=== PATIENT | female | born 1995 | race Two or more races ===

== ENCOUNTER 2024-07-26 16:01 | Inpatient (IN) | payer MEDICAID, OTHER ==
[~2024-07-26] VITALS: Ht 152.4 cm; Wt 56.9 kg
--- NOTE | 2024-07-26 16:11 | ED.PDOC ---
HARP REPAIRER HPI Comments HPI: Poor Historian. 29-year-old female brought in by ambulance for evaluation of lower abdominal/pelvic pain diffuse with the associated nausea and vomiting. This happened suddenly today while she was in the car. Vomit is nonbilious nonbloody. Pain is constant nonradiating. No alleviating or precipitating factors. Patient is with early gestation and was seen and evaluated approximately a month ago at [facility] for vaginal bleed and she was told that this might be a miscarriage or too early to tell. Patient denies any history of drugs or alcohol. Patient denies any active vaginal bleeding. pt last menstrual period was : 05/06/24 Patient states that she is approximately 11 weeks gestation. VITALS prior to ED arrival; TEMP: HEART RATE; 137 02 SAT; 99% on room air RR; 18 BP; 131/95 VITALS upon ED arrival: TEMP: HEART RATE; 111 02 SAT; 99% on room air RR; 18 BP; 109/78 PMH:UTI PSH: denies SOCIAL HISTORY: denies tobacco use, denies etoh use, denies drug use MEDS; denies ALLERGIES; denies REVIEW OF SYSTEMS: CONSTITUTIONAL: Denies acute: fever, diaphoresis, chills, HEAD: Denies acute: headache, photophobia Eyes: Denies acute: Double vision, vision loss, eye pain, eye discharge. EARS: Denies acute: tinnitus, hearing loss, ear discharge, ear pain, THROAT: Denies acute: sore throat, swelling, difficulty swallowing , pain with swallowing, change in voice. NECK: Denies acute: neck pain, neck swelling, stiff neck. HEART: Denies acute : chest pain, palpitations, LUNGS: Denies acute: SOB, wheezing, cough, hemoptysis ABDOMEN: Denies acute: diarrhea, melena , hematemesis, hematochezia SKIN: Denies acute: rash, redness, lesions, itchiness. EXTREMITIES: Denies acute: calf pain, numbness, tingling, weakness, denies pain in extremity. Denies acute: Low back pain. Neuro: Denies acute: focal neurological deficit, motor or sensory focal neurological deficit, tremors, seizure like activity, confusion, dizziness, change in mental status, loss of bowel or bladder function, cauda equina like symptoms. : Denies acute: dysuria, hematuria, flank pain, increase in urinary frequency. PSYCH: Denies acute: hallucination, suicidal ideation, homicidal ideation. FEMALE: Denies acute: abnormal vaginal bleeding, foul odor, unusual discharge. PHYSICAL EXAM: General: Moderate acute distress, awake and alert. Head: normocephalic, atraumatic. Neck: supple, trachea is midline, no swelling. Throat: Normal phonation. Eyes:, no erythema, no purulent discharge, no proptosis, no icterus. Heart: regular tachycardic, no significant murmur appreciated. Lungs: no apparent respiratory distress, Able to speak in full sentences. No wheezing, no rhonchi, no crackles. No stridors Clear to auscultation bilaterally. Abdomen: Lower abdomen tender to palpation, non distended, soft, no guarding, no rebound, + bowel sounds. Neuro: Awake, Alert, oriented to name, self, situation, follows commands GCS=15. Speech is normal. Skin: no petechia, no purpura, no cyanosis, non-pale, not jaundice. Lower extremities: --no - Pitting edema no deformity, no focal swelling, no calf TTP. Makes eye contact. moves all four extremities. Face: no apparent facial droop. Time Seen by MD: 16:03 Reviewed Notes: Nurses Notes, Oil Pipeline Operator Notes, Medications, Allergies Allergies: Coded Allergies: NO KNOWN ALLERGIES (Unverified , 07/26/24) Home Meds Active Scripts Ondansetron Odt 4MG Tab (ZOFRAN PO) 4 Mg Tb, 4 MG PO Q4HPRN PRN for 7 Days, #35 TAB ODT TAB-DISSOLVE IN MOUTH, THEN SWALLOW Prov:STARLA MOREIRA DO 07/26/24 Ibuprofen (Ibuprofen) 800 Mg Tab, 800 MG PO TID PRN for 4 Days, #12 TAB Prov:STARLA MOREIRA 07/26/24 Hydrocodone-Acetaminophen (Hydrocodone/Acetaminophen 10-325 mg) 1 Tab Tab, 1 TAB PO Q6HPRN PRN for 7 Days, #28 TAB Prov:STARLA MOREIRA 07/26/24 Docusate Sodium (Colace) 100 Mg Cap, 1 CAP PO BID, #60 CAP 2 Refills Prov:STARLA MOREIRA 07/26/24 Information Source: Patient, Emergency Med Personnel Mode of Arrival: EMS Brought in by: EMS Past Medical History PAST MEDICAL HISTORY: UTI'S Surgical History: Denies all surgeries HEALTH SERVICE COORDINATOR History: Denies all HEALTH SERVICE COORDINATOR Hx Family History Family History: Unknown Social History Smoker: Non-Smoker Alcohol: Denies ETOH Use Drugs: Denies Drug Use Lives In: Home Was a procedure done? Was a procedure done?: No Differential Diagnosis (HEALTH SERVICE COORDINATOR) Vaginal Bleeding: - Complete, - Incomplete, - Inevitable, - Missed, - Threatened, Abruptio Placentae, Blood Loss Anemia, Dysmenorrhea, Ectopic , Hormonal, Menorrhagia, Menometrorrhagia, Menstrual Bleeding, Myomatous Uterus, Placenta Previa, Precip itous Hct, Trauma, UTI, Vaginitis, Other (DDX include Diverticulitis, colitis, gastroenteritis, acute abdomen, SBO, enteritis, constipation, volvulus, appendicitis, Gallbladder disease, choledocolithiasis, ascending cholangitis, pancreatitis, intraAbdominal mass/neoplasm, hepatitis, UTI, pylonephritis, kidney stone, aneurysm, dissection, Inflammatory bowel disease, gastroparesis, ischemic bowel, ovarian torsion, ovarian cyst/mass, tubo-ovarian abscess, , ectopic , PID, STD.) X-Ray, Labs, Meds, VS Vital Signs Date Time Temp Pulse Resp B/P (MAP) Pulse Ox O2 Delivery O2 Flow Rate FiO2 07/26/24 20:50 95 21 123/85 (98) 92 07/26/24 20:35 96 20 125/84 (98) 94 07/26/24 20:30 105 15 142/85 (104) 95 07/26/24 20:25 102 18 147/80 (102) 98 07/26/24 20:25 Room Air 96 07/26/24 20:18 17 97 Mask 6.0 07/26/24 20:18 98.1 109 17 145/80 (101) 97 98.1 07/26/24 20:18 Mask 6.0 97 07/26/24 18:31 97.8 98 18 136/104 (115) 100 97.8 07/26/24 17:04 97 18 97 Room Air* 0 21 07/26/24 17:00 98.1 101 18 107/81 (90) 98 98.1 07/26/24 16:05 98.1 109 18 106/78 (87) 100 Lab Test 07/26/24 18:42 07/26/24 17:28 07/26/24 16:38 Range/Units Hemoglobin 11.9 #L 14.6 12.2-16.2 g/dL Hematocrit 36.1 # 43.8 36.0-46.0 % Prothrombin Time 11.6 9.3-11.8 sec Prothrombin Time INR 1.10 0.9-1.15 Activated Partial Thromboplast Time 23.1 L 24.5-34.5 SEC Lactic Acid Level 3.1 *H 2.9 *H 0.4-2.0 mmol/L Troponin I High Sensitivity 67 *H 44 *H 32 </=34 ng/L White Blood Count 13.7 H 4.4-10.8 10^3/uL Red Blood Count 4.88 4.0-5.20 10^6/uL Mean Corpuscular Volume 89.7 80.0-100.0 fL Mean Corpuscular Hemoglobin 29.9 28.0-32.0 pg Mean Corpuscular Hemoglobin Concent 33.4 32.0-36.0 g/dL Red Cell Distribution Width 13.9 11.8-14.3 % Platelet Count 358 140-450 10^3/uL Mean Platelet Volume 8.5 6.9-10.8 fL Neutrophils (%) (Auto) 81.9 H 37.0-80.0 % Lymphocytes (%) (Auto) 13.8 10.0-50.0 % Monocytes (%) (Auto) 3.4 0.0-12.0 % Eosinophils (%) (Auto) 0.6 0.0-7.0 % Basophils (%) (Auto) 0.3 0.0-2.0 % Neutrophils # (Auto) 11.2 H 1.6-8.6 10 ^3/uL Lymphocytes # (Auto) 1.9 0.4-5.4 10 ^3/uL Monocytes # (Auto) 0.5 0-1.3 10 ^3/uL Eosinophils # (Auto) 0.1 0-0.8 10 ^3/uL Basophils # (Auto) 0 0-0.2 10 ^3/uL Nucleated Red Blood Cells 0.1 % Sodium Level 138 136-145 mmol/L Potassium Level 4.0 3.5-5.1 mmol/L Chloride Level 107 98-107 mmol/L Carbon Dioxide Level 19 L 20-31 mmol/L Anion Gap 12 5-15 Blood Urea Nitrogen 6 L 9-23 mg/dL Creatinine 0.75 0.550-1.02 mg/dL Glomerular Filtration Rate Calc 109 >90 mL/min BUN/Creatinine Ratio 8.0 L 10.0-20.0 Serum Glucose 126 H 74-106 mg/dL Calcium Level 10.3 8.7-10.4 mg/dL Magnesium Level 1.8 1.6-2.6 mg/dL Total Bilirubin 0.5 0.2-1.0 mg/dL Aspartate Amino Transferase (AST) 50 H 13-40 U/L Alanine Aminotransferase (ALT) 156 H 7-40 U/L Alkaline Phosphatase 71 46-116 U/L Total Protein 8.5 H 5.7-8.2 g/dL Albumin 4.7 3.2-4.8 g/dL Lipase 32 12-53 U/L Beta HCG, Quantitative 48.8 H 1.5-4.2 mIU/mL Current Medications Medications (Trade) Dose Ordered Sig/Christina Route Start Time Stop Time Status Last Admin Sodium Chloride 1,000 ml @ 1,000 mls/hr Q1H ONCE IV 07/26/24 16:30 07/26/24 17:29 DC 07/26/24 16:58 Ceftriaxone Sodium 50 ml @ 100 mls/hr ONCE ONCE IV 07/26/24 17:30 07/26/24 17:59 DC 07/26/24 17:57 Sodium Chloride 1,000 ml @ 1,000 mls/hr Q1H ONCE IV 07/26/24 17:30 07/26/24 18:29 DC 07/26/24 17:54 Time of 1ST Reevaluation: 18:02 (spoke with OB, Doc, Dr Elizondo case was discussed with the OB Gyne team (HPI, physical exam, labs and diagnostic tests that were available at the time of disposition, ED course, treatment plan) on the phone. They agreed with our plan and requested PT PTT INR. she will be taking the patient to the operating room soon. ) Reevaluation 1ST: Unchanged Patient Education/Counseling: Diagnosis, Treatment Family Education/Counseling: No Family Present Comments Patient presented with the above HPI.---pelvic exam/vaginal bleed in --workup was initiated. patient was found with the above mentioned diagnosis. Patient was given: Fluids. Pain control medications. Patient ED course and VS have been stabilized. Patient has been reassessed in the ED and remained in a stable condition. Patient was tachycardic. Repeat H and H were obtained. Patient was typed and screen. Ultrasound obtained shows ruptured ectopic . Pertinent incidental findings were discussed with the patient and/or family. Patient/family voices understanding and is agreeable with plan. Patient has been observed in the ED adequate length of time to insure improvement/stability. OB Gyne was consulted. Patient will be taken directly to the operating room for ruptured ectopic . patient was admitted for further evaluation and treatment of their presentation. All the reports of any imaging studies that were ordered by myself were reviewed by myself. Departure 1 Departure Time of Disposition: 18:04 Impression: Primary Impression: Ruptured ectopic Additional Impressions: Elevated troponin Elevated lactic acid level Disposition: ADMITTED INPATIENT Admit to: Tele Condition: Guarded e-Prescriptions Ondansetron Odt 4MG Tab (ZOFRAN PO) 4 Mg Tb 4 MG PO Q4HPRN PRN for 7 Days, #35 TAB ODT TAB-DISSOLVE IN MOUTH, THEN SWALLOW Prov: STARLA MOREIRA DO 07/26/24 Ibuprofen (Ibuprofen) 800 Mg Tab 800 MG PO TID PRN for 4 Days, #12 TAB Prov: STARLA MOREIRA DO 07/26/24 Hydrocodone-Acetaminophen (Hydrocodone/Acetaminophen 10-325 mg) 1 Tab Tab 1 TAB PO Q6HPRN PRN for 7 Days, #28 TAB Prov: STARLA MOREIRA DO 07/26/24 Docusate Sodium (Colace) 100 Mg Cap 1 CAP PO BID, #60 CAP 2 Refills Prov: STARLA MOREIRA DO 07/26/24 Discharged With: Self Critical Care Note Critical Care Time?: Yes (1 hr-critical care time only) I personally scribed for YONI HAGEN DO ([email or web address]) on 07/26/24 at 16:11. Electronically submitted by Eris Rg ([email or web address]). I personally scribed for YONI HAGEN DO ([email or web address]) on 07/26/24 at 16:21. Electronically submitted by Eris Rg ([email or web address]). I personally scribed for YONI HAGEN DO ([email or web address]) on 07/26/24 at 18:03. Electronically submitted by Eris Rg ([email or web address]). YONI HAGEN DO Jul 26, 2024 16:11
[2024-07-26 16:52] LABS: Basophils # (auto) 0 10 ^3/uL (0-0.2); Basophils % (auto) 0.3 % (0.0-2.0); Eosinophils # (auto) 0.1 10 ^3/uL (0-0.8); Eosinophils % (auto) 0.6 % (0.0-7.0); Hematocrit 43.8 % (36.0-46.0); Hemoglobin 14.6 g/dL (12.2-16.2); Lymphocytes # (auto) 1.9 10 ^3/uL (0.4-5.4); Lymphocytes % (auto) 13.8 % (10.0-50.0); Mean Corpuscular Hemoglobin 29.9 pg (28.0-32.0); Mean Corpuscular Hgb Conc. 33.4 g/dL (32.0-36.0); Mean Corpuscular Volume 89.7 fL (80.0-100.0); Monocytes # (auto) 0.5 10 ^3/uL (0-1.3); Monocytes % (auto) 3.4 % (0.0-12.0); Neutrophils # (auto) 11.2 10 ^3/uL (1.6-8.6); Neutrophils % (auto) 81.9 % (37.0-80.0); Nucleated Red Blood Cells % 0.1 %; Platelet Count (auto) 358 10^3/uL (140-450); Red Blood Cells 4.88 10^6/uL (4.0-5.20); Red Cell Distribution Width 13.9 % (11.8-14.3); White Blood Cell 13.7 10^3/uL (4.4-10.8)
[2024-07-26] MEDS: SODIUM CHLORIDE 0.9% 1,000 ML IV ONE ×2 (16:58→17:54)
[2024-07-26 17:04] VITALS: PULSE 97; RESP 18; O2SAT 97
[2024-07-26 17:26] LABS: Lactic Acid w/Reflex 2.9 mmol/L (0.4-2.0)
[2024-07-26 17:27] LABS: Alanine Aminotransferase 156 U/L (7-40); Albumin 4.7 g/dL (3.2-4.8); Alkaline Phosphatase 71 U/L (46-116); Anion Gap 12 (5-15); Aspartate Aminotransferase 50 U/L (13-40); Bilirubin, Total 0.5 mg/dL (0.2-1.0); Blood Urea Nitrogen 6 mg/dL (9-23); Calcium 10.3 mg/dL (8.7-10.4); Carbon Dioxide 19 mmol/L (20-31); Chloride 107 mmol/L (98-107); Glucose 126 mg/dL (74-106); Magnesium 1.8 mg/dL (1.6-2.6); Sodium 138 mmol/L (136-145); Total Protein 8.5 g/dL (5.7-8.2)
[2024-07-26] MEDS: cefTRIAXone 1GM/50ML D5W 50 ML IV ONE (17:57)
[2024-07-26 18:05] LABS: Lipase 32 U/L (12-53)
--- NOTE | 2024-07-26 18:24 | DVH ---
Procedure: US OB ULTRASOUND COMP LESS 14WKS Study Date and Requested Time: 07/26/2024 05:26 PM Study Description: US OB ULTRASOUND COMP LESS 14WKS History: PELVIC PAIN, N/V/ Comparison: None Technique: Multiple high resolution peterson-scale images obtained of the uterus, fetus, and other gestat ional components with M-mode scanning for evaluation of heart rate. Findings: No intrauterine is visualized. Uterus measures 8.6 x 5.2 x 3.8 cm in size with heterogeneous echotexture. Endometrial thickness of 1 cm. Cervical os appears closed. Right ovary measures 4.3 x 2.6 x 2.2 cm. Left ovary measures 3.3 x 2.5 x 2.5 cm with a 3.3 x 3 x 1 x 4.5 cm complex structure with thick wall. Normal ovarian color Doppler flow bilaterally. Complex fluid collection of the right adnexa measuring 7.4 x 6.4 x 7.3 cm. Free fluid within the Morison's pouch. Impression: No intrauterine is noted. Ectopic can not be excluded. Recommend correlation wit h beta HCG and ultrasound as clinically indicated. Complex fluid collection over the right adnexa measuring 7.4 x 6.4 x 7.3 cm with fluid noted within t he Morison's pouch. Correlate for possible ruptured ectopic . 3.3 x 3.1 x 4.5 cm thick walled hypoechoic structure of the left adnexa. An ectopic can not be excluded. Quality Control Industrial Engineer noted notification of dr. Cleaning with preliminary results at 6:00 p.m.
[2024-07-26] MEDS: GABAPENTIN 300 MG CAP ONE (18:54)
[2024-07-26] MEDS: CELECOXIB 100 MG CAP ONE (18:54)
[2024-07-26] MEDS: ACETAMINOPHEN IV 100 ML IV ONE (18:54)
[2024-07-26] MEDS ORDERED: ZOFR4T PO (18:57)
[2024-07-26] MEDS ORDERED: HYDR-4072 PO (18:57)
[2024-07-26] MEDS ORDERED: DOCU-94 PO (18:57)
[2024-07-26] MEDS ORDERED: IBUP-1456 PO (18:57)
[2024-07-26 19:00] LABS: Hematocrit 36.1 % (36.0-46.0); Hemoglobin 11.9 g/dL (12.2-16.2)
[2024-07-26] MEDS: GABAPENTIN 300 MG CAP PO ONE (19:00)
[2024-07-26] MEDS: CELECOXIB 100 MG CAP PO ONE (19:00)
[2024-07-26] MEDS: ACETAMINOPHEN IV 1000 MG/100ML (10MG/ML) IV ONE (19:00)
[2024-07-26] MEDS ORDERED: GLYCOPYRROLATE 0.2 MG/ML 1ML VIAL ONE (19:08)
[2024-07-26] MEDS ORDERED: ONDANSETRON HCL 4 MG/2 ML VIAL ONE (19:08)
[2024-07-26] MEDS ORDERED: PROPOFOL 10 MG/ML 20 ML IV ONE (19:08)
[2024-07-26] MEDS ORDERED: ROCURONIUM 10MG/ML 10ML VIAL IV ONE (19:08)
[2024-07-26] MEDS ORDERED: DexAMETHasone SOD PHOS 10MG/1ML VIAL INJ ONE (19:08)
[2024-07-26] MEDS ORDERED: KETOROLAC TROMETH 30 MG/ML 1ML VIAL ONE (19:08)
[2024-07-26] MEDS ORDERED: LIDOCAINE 2% (LOCAL ANESTH.) PF 5ml SDV ONE (19:08)
[2024-07-26] MEDS ORDERED: KETAMINE 50mg/ML 1ml syringe ONE (19:08)
[2024-07-26] MEDS ORDERED: fentaNYL CITRATE 100 MCG/2 ML VL ONE (19:09)
--- NOTE | 2024-07-26 19:09 | DVHHP ---
ADMIT DATE: 07/26/2024 CHIEF COMPLAINT: Severe abdominal pain. HISTORY OF PRESENT ILLNESS: The patient is a 29-year-old 7, para 6, brought in by ambulance for severe abdominal pain associated with nausea, vomiting. Approximately a month ago, there was a gestational sac seen at [place], associated with some bleeding. The patient was told she might have a miscarriage. Her beta hCG is 48, however, ultrasound reveals a large amount of blood products all the way to the liver gutters. Large complex mass consistent with ruptured ectopic . PAST MEDICAL HISTORY: None. PAST SURGICAL HISTORY: None. SOCIAL HISTORY: None. FAMILY HISTORY: None. OBSTETRIC AND GYNECOLOGIC HISTORY: Six vaginal deliveries. REVIEW OF SYSTEMS: Consistent with HPI. PHYSICAL EXAMINATION: VITAL SIGNS: Stable, afebrile. HEENT: Within normal limits. CARDIOVASCULAR: Tachy rate. LUNGS: Clear to auscultation. ABDOMEN: Positive guarding, generalized tenderness, rebound. PELVIC: External genitalia within normal limits. Vagina bleeding noted. Cervical motion tenderness noted. Adnexal tenderness noted. EXTREMITIES: No clubbing, cyanosis or edema. IMPRESSION: Ruptured ectopic . PLAN: Exploratory laparotomy, possible removal of affected tube or ovary or both, possible blood transfusion. Informed consent obtained. Risks, complication of surgery including infection, bleeding, hematoma formation, injury to bowel, bladder, surrounding organs, possibility of DVT, pulmonary embolism, risk of anesthesia discussed with the patient. Options reviewed. All questions answered. The patient wishes to proceed with planned procedure. The patient has had some orthostatic changes in emergency room consistent with acute rupture. DO SHERMAN Whitfield TID: [id number] RECEIPT: [id number]
[2024-07-26] MEDS ORDERED: SUGAMMADEX 200mg/2ml Vial (100MG/ML) IV ONE (19:12)
[2024-07-26 19:18] LABS: INR 1.1 (0.9-1.15); Partial Thromboplastin Time 23.1 SEC (24.5-34.5); Prothrombin Time 11.6 sec (9.3-11.8)
[2024-07-26] MEDS ORDERED: ONDANSETRON HCL 4 MG/2 ML VIAL IV PRN ×2 (20:15→20:30)
--- NOTE | 2024-07-26 20:17 | DVHOP2 ---
Operative Report DATE OF OPERATION: 07/26/24 PREOPERATIVE DIAGNOSES: VAG BLEEDING,SEVERE ABD PAIN SUSPECT Ruptured ectopic POSTOPERATIVE DIAGNOSES: LEFT TUBAL Ruptured ectopic SURGEON: Ivette Cleaning D.O. ANESTHESIOLOGIST: RICHELLE TYPE OF ANESTHESIA : General CONSENT: The patient was informed of the risks and benefits of the procedure. The patient was informed of the risks and benefits of the procedure. These include but are not limited to , complications of anesthesia, postoperative infection, incomplete relief of symptoms, recurrence of symptoms, damage to blood vessels, nerves and tendons, deep venous thrombosis, pulmonary embolism and possible need for repeat surgery in the future. FINDINGS: 1L of hemoperitoneum, LEFT ectopic ampullary leaking , right ovary AND TUBE grossly normal appearing, uterus 8 weeks size, left ovary grossly normal. PROCEDURES: Exploratory laparotomy,LEFT salpingectomy,evacuation of clots. PROCEDURE IN DETAIL: The patient was taken to the operating room placed in supine position. General anesthesia was performed without difficulty. A low Pfannenstiel incision was made with scalpel down to the rectus fascia. The rectus fascia was nicked in the midline and carried laterally. The rectus fascia was dissected superiorly and inferiorly. The rectus muscles were in the midline. Peritoneum was identified and entered with sharp dissection . An O'Jhonny-O'Zeng retractor with moist laps were placed into the abdomen and bowel was packed at this point. At approximately 1000 ml of hemoperitoneum was evacuated. The ectopic was identified and using a MALENA stapler the LEFT tube was excised. Clips were applied to the pedicular site. Copious irrigation was performed all blood clots were removed. The RIGHT tube and ovary were grossly intact. The right ovary was grossly intact appearing. Uterus was 8 weeks in size. Surgicel was applied to to the right tubal site. All laparotomy sponges were removed from the abdomen and pelvis. No bleeding was noted good hemostasis was noted. The O'Jhonny O'Zeng retractor was removed. Fascia was closed using 0 Prolene x2. Skin was closed using staplers. Patient was extubated successfully. She was taken to recovery room in stable condition. Specimen was sent to pathology and it was taken out of the room. ESTIMATED BLOOD LOSS: EBL was 1 L of hemoperitoneum 100 ml intraoperative blood loss. IVETTE CLEANING DO Jul 26, 2024 20:16
[2024-07-26 20:18] VITALS: RESP 17; O2SAT 97
--- NOTE | 2024-07-26 20:18 | POSTOP ---
Post-Operative Note Post-Operative Note Preop Diagnosis SUSPECT RUPTURED ECTOPIC PREG Postop Diagnosis: SAME Operation performed EXPL LAP,LEFT SALPINGECTOMY Specimen LEFT TUBE Anesthesia: General Anesthesiologist: RICHELLE Blood Loss(fluid mgmt) 1L HEMO,100ML INTRAOP BLOOD LOSS Surgeon Starla Cleaning Implant CLIPS Complications & Mgmt NONE Date 07/26/24 Time 20:17 STARLA CLEANING DO Jul 26, 2024 20:18
[2024-07-26] MEDS ORDERED: FLUMAZENIL 0.1 MG/ML INJ 10ML MDV IV PRN (20:30)
[2024-07-26] MEDS ORDERED: hydrALAZINE HCL 20 MG/ML VL IV PRN (20:30)
[2024-07-26] MEDS ORDERED: HYDROmorphone HCL 2 MG/ML VL/or syr IV PRN (20:30)
[2024-07-26] MEDS ORDERED: ePHEDrine SULFATE 50 MG/ML AMP IV PRN (20:30)
[2024-07-26] MEDS ORDERED: fentaNYL CITRATE 100 MCG/2 ML VL IV PRN (20:30)
[2024-07-26] MEDS ORDERED: NALOXONE HCL 0.4 MG/ML VIAL IV PRN (20:30)
[2024-07-26] MEDS: oxyCODONE HCL 5MG TAB ONE (20:48)
[2024-07-26] MEDS: HYDROmorphone HCL 2 MG/ML VL/or syr ONE (21:08)
[2024-07-26] MEDS ORDERED: DOCUSATE SOD 100 MG CAP PO PRN (21:15)
[2024-07-26] MEDS ORDERED: MORPHINE SULFATE INJ 2 MG/ml SYRG IV PRN (21:15)
[2024-07-26] MEDS ORDERED: NITROGLYCERIN 0.4 MG SL TAB SL PRN (21:15)
[2024-07-26] MEDS: LACTATED RINGER'S 1,000 ML IV SCH (22:20)
[2024-07-26] MEDS: ceFAZolin 1GM/50ML 50 ML IV SCH (22:20)
[2024-07-26 22:31] VITALS: BP 113/78; PULSE 85; PULSE 94; RESP 18; RESP 20; TEMP 97.9; O2SAT 98
[2024-07-26 22:53] LABS: Basophils # (auto) 0 10 ^3/uL (0-0.2); Eosinophils # (auto) 0 10 ^3/uL (0-0.8); Hematocrit 31.9 % (36.0-46.0); Hemoglobin 10.7 g/dL (12.2-16.2); Lymphocytes # (auto) 0.6 10 ^3/uL (0.4-5.4); Lymphocytes % (auto) 4.8 % (10.0-50.0); Mean Corpuscular Hgb Conc. 33.5 g/dL (32.0-36.0); Mean Corpuscular Volume 89.7 fL (80.0-100.0); Monocytes # (auto) 0.1 10 ^3/uL (0-1.3); Neutrophils # (auto) 11.5 10 ^3/uL (1.6-8.6); Neutrophils % (auto) 94.2 % (37.0-80.0); Platelet Count (auto) 235 10^3/uL (140-450); Red Blood Cells 3.55 10^6/uL (4.0-5.20); White Blood Cell 12.2 10^3/uL (4.4-10.8)
[2024-07-27] VITALS (7 sets, daily range): BP systolic 107–127; BP diastolic 55–72; PULSE 90–109; RESP 16–20; TEMP 98–98.3; O2SAT 90–97
[2024-07-27] MEDS: HYDROmorphone HCL 2 MG/ML VL/or syr IV ONE (00:53)
[2024-07-27] MEDS: oxyCODONE HCL 5MG TAB PO PRN (05:24)
[2024-07-27 06:45] LABS: Basophils # (auto) 0 10 ^3/uL (0-0.2); Eosinophils # (auto) 0 10 ^3/uL (0-0.8); Hematocrit 31.5 % (36.0-46.0); Hemoglobin 10.9 g/dL (12.2-16.2); Lymphocytes # (auto) 0.8 10 ^3/uL (0.4-5.4); Lymphocytes % (auto) 7.3 % (10.0-50.0); Mean Corpuscular Hemoglobin 30.2 pg (28.0-32.0); Mean Corpuscular Hgb Conc. 34.7 g/dL (32.0-36.0); Mean Corpuscular Volume 87.1 fL (80.0-100.0); Monocytes # (auto) 0.2 10 ^3/uL (0-1.3); Monocytes % (auto) 1.5 % (0.0-12.0); Neutrophils # (auto) 9.9 10 ^3/uL (1.6-8.6); Neutrophils % (auto) 91.2 % (37.0-80.0); Platelet Count (auto) 276 10^3/uL (140-450); Red Blood Cells 3.61 10^6/uL (4.0-5.20); Red Cell Distribution Width 13.8 % (11.8-14.3); White Blood Cell 10.8 10^3/uL (4.4-10.8)
[2024-07-27] MEDS ORDERED: BISACODYL 10 MG RECT SUPP PR PRN (08:00)
[2024-07-27] MEDS: LACTATED RINGER'S 1,000 ML IV SCH (10:03)
[2024-07-27] MEDS: DOCUSATE SOD 100 MG CAP PO SCH (10:04)
[2024-07-27] MEDS: HYDROcodone-ACET 10/325MG TAB PO PRN (10:04)
[2024-07-27] MEDS: HYDROmorphone HCL 2 MG/ML VL/or syr IV PRN (12:08)
[2024-07-27] MEDS: ceFAZolin 1GM/50ML 50 ML IV SCH (14:40)
--- NOTE | 2024-07-27 14:55 | DVHPNRES ---
Progress Note Date Seen: Jul 27, 2024 Resident Creating Document: MARIA LUISA GONZALEZ RESIDENT Medical Necessity Reason Pt with a Central, PICC or Fol: Yes The following are medically ne: Cantu Catheter Reason for cantu catheter: Jack. Abd Surgery Subjective Review of Systems Patient is a 29-year-old female with past medical history of migraine, gestational hypertension, congenital heart disease now resolved, who came in due to acute intractable abdominal pain. 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 She then called her and mother, she notes she felt too sick to drive and had a brief episode of loss of consciousness from the pain. She was subsequently brought to the hospital. Patient notes that on 06/28/[address] [facility] for abdominal pain and vaginal bleeding that has been ongoing for 1 week where she was told that she is and should go to the hospital. Shortly after, patient went to [facility] ED where a transabdominal ultrasound was conducted and patient was then sent home with antibiotics for UTI along with a diagnosis of threatened miscarriage. A week later on 07/05/2024 patient went to the [facility] again where she was told that her hCG levels were adequately rising and it is not likely threatened miscarriage and was sent home with instructions to follow up with her rehabilitation services coordinator. Past surgical history: Denies Home medications: Denies Past Hospitalization: Denies Social & Personal history: Patient lives with her , kids and [id number]. Denies ever using tobacco, alcohol or drugs. Allergies: Denies Patient seen and examined at bedside. Patient is alert and oriented to time, place person and responding to all questions. General: Reports feeling fatigue and chills Eyes: No Pain, No Vision change, No Conjunctivae inflammation, No Eyelid inflammation, No Other, No Redness ENT: No Ear pain, No Ear discharge, No Nose pain, No Nose discharge, No Nose congestion, No Mouth pain, No Mouth swelling, No Throat pain, No Throat swelling, No Other Cardiovascular: No Chest Pain, Palpitations, No Orthopnea, Dyspnea, No Edema, No Lt Headedness, No Other Respiratory: No Cough, No Dry, Shortness of breath, No SOB with exertion, No Wheezing, No Hemoptysis, No Pleuritic Pain, No Sputum, No Other Gastrointestinal: Nausea, Vomiting, No Abdominal Pain, No Diarrhea, No Constipation, No Melena, No Hematochezia, No Other Genitourinary: No Dysuria, No Frequency, No Incontinence, No Hematuria, No Retention, No Other Musculoskeletal: No other, No neck pain, No shoulder pain, No arm pain, No back pain, No hand pain, No leg pain, No foot pain Skin: No Rash, No Lesions, No Jaundice, No Bruising, No Other Psychiatric: Reports feeling more anxious than usual in the last 2 weeks Objective vital signs Vital Sign Date Time Temp Pulse Resp B/P (MAP) Pulse Ox O2 Delivery O2 Flow Rate FiO2 07/27/24 12:08 96 18 126/55 07/27/24 09:00 98.0 97 98.0 07/27/24 08:00 Nasal Cannula* 2 28 Total Intake and Output 07/26/24 07/26/24 07/27/24 15:00 23:00 07:00 Intake Total 50 ml 650 ml Output Total 450 ml Balance 50 ml 200 ml medications Current Medications Medications Dose Ordered Sig/Christina Route Start Time Stop Time Status Last Admin Dose Admin Ondansetron HCl 4 mg Q4HP PRN IV 07/26/24 20:15 Oxycodone HCl 10 mg ONCE PRN PO 07/26/24 20:30 07/27/24 05:24 10 MG Docusate Sodium 100 mg BIDPRN PRN PO 07/26/24 21:15 Nitroglycerin 0.4 mg Q5MINP PRN SL 07/26/24 21:15 Morphine Sulfate 2 mg Q30M PRN IV 07/26/24 21:15 Lactated Ringer's 1,002 ml @ 80 mls/hr [id number] IV 07/27/24 08:00 07/27/24 12:09 80 MLS/HR Docusate Sodium 100 mg BID PO 07/27/24 10:00 07/27/24 10:04 100 MG Bisacodyl 10 mg Q6HP PRN WV 07/27/24 08:00 Hydromorphone HCl 1 mg Q4HPRN PRN IV 07/27/24 08:00 07/27/24 12:08 1 MG Acetaminophen/ Hydrocodone Bitart 1 tab Q4HP PRN PO 07/27/24 08:00 07/27/24 10:04 1 TAB Cefazolin Sodium 50 ml @ 100 mls/hr Q8HR IV 07/27/24 14:00 07/27/24 14:40 100 MLS/HR Examination General Appearance: Cooperative. Well developed. S/p exploratory laparotomy with left salpingectomy Head Exam: Normal inspection Neck Exam: Normal inspection. Non-tender. Normal alignment Pulmonary/Respiratory: Chest non-tender. Clear bilateral breath sounds, no crackles, no wheezing. Cardiovascular/Chest: Regular rate and rhythm. No murmurs. No JVD. Peripheral Pulses: 2+ Radial (R). 2+ Radial (L). 2+ Pedal (R). 2+ Pedal (L) Abdominal Exam: Normal bowel sounds. Soft. normal abdomen, no visible veins, tenderness to palpation. No hepatospenomegaly. No masses Ankle Exam: Negative ankle edema Lower extremities: Negative lower extremity edema Neuro/Mental Status: A&O x4. Coherent. Thoughts/Psych: Normal thought pattern. Appropriate mood and affect. Good judgement and insight Skin Exam: Normal inspection. Normal color. Warm. Dry laboratory and microbiology Laboratory Tests 07/27/24 06:03 07/26/24 16:38 Test 07/26/24 16:38 Range/Units Serum Glucose 126 H 74-106 mg/dL Labs and/or images reviewed: Labs reviewed by me, Image(s) reviewed by me Problem List/Assessment/Plan Problem List/Assessment/Plan Left tubal ruptured ectopic NSTEMI type 2 and lactic acidosis likely due to above S/P exploratory laparotomy with left salpingectomy and evacuation of clots - USG: No intrauterine is noted. Ectopic can not be excluded. Recommend correlation with beta hCG and ultrasound. Complex fluid collection over the right adnexa measuring 7.4 x 6.4 x 7.3 cm with fluid noted within the Morison's pouch. 3.3 x 3.1 x 4.5 cm thick walled hypoechoic structure of the left adnexa, and an ectopic can not be excluded. - IV LR at 80 cc/hour - IV cefazolin Q 8 hours - Jewell 10 as needed for moderate pain q.4 hours, IV Dilaudid 1 mg as needed q.4 hours for breakthrough pain Slow transit constipation - bisacodyl suppository 10 mg as needed for constipation Mild anemia, likely related to prolonged vaginal bleeding/blood loss - hemoglobin 10.9, MCV 87.1 - we will continue to monitor Transaminitis - AST 50, ALT 156 - we will continue to monitor DVT prophylaxis: SCD Goals of care: Full code, discussed for >16 minutes on 07/27/24 Plan discussed with patient Plan discussed with Dr. Olvera Plan discussed with: Patient, Spouse, Other (RN) MARIA LUISA GONZALEZ RESIDENT Jul 27, 2024 14:55
--- NOTE | 2024-07-27 15:52 | DVHPN2 ---
Subjective Progress Notes Subjective POD#1 s/p Ex Lap and salpingectomy for ectopic S: Pain controlled. No N/V or fever. Objective PHYSICAL EXAM Physical Exam: Alert, NAD Abd Soft, NT incision C/D/I Ext Soft, NT Vital Signs and I&O Vital Signs Date Time Temp Pulse Resp B/P (MAP) Pulse Ox O2 Delivery O2 Flow Rate FiO2 07/27/24 17:00 98.1 102 18 107/60 (76) 90 98.1 07/27/24 08:00 Nasal Cannula* 2 28 Intake and Output 07/27/24 07:00 Intake Total 700 ml Output Total 450 ml Balance 250 ml Intake Oral 0 ml IV Total 700 ml Output Urine Total 450 ml Lab results Laboratory Tests Test 07/26/24 16:38 07/26/24 17:28 07/26/24 18:42 07/26/24 22:30 Range/Units White Blood Count 13.7 H 12.2 H 4.4-10.8 10^3/uL Red Blood Count 4.88 3.55 L 4.0-5.20 10^6/uL Hemoglobin 14.6 11.9 #L 10.7 L 12.2-16.2 g/dL Hematocrit 43.8 36.1 # 31.9 #L 36.0-46.0 % Mean Corpuscular Volume 89.7 89.7 80.0-100.0 fL Mean Corpuscular Hemoglobin 29.9 30.0 28.0-32.0 pg Mean Corpuscular Hemoglobin Concent 33.4 33.5 32.0-36.0 g/dL Red Cell Distribution Width 13.9 14.0 11.8-14.3 % Platelet Count 358 235 140-450 10^3/uL Mean Platelet Volume 8.5 8.5 6.9-10.8 fL Neutrophils (%) (Auto) 81.9 H 94.2 H 37.0-80.0 % Lymphocytes (%) (Auto) 13.8 4.8 L 10.0-50.0 % Monocytes (%) (Auto) 3.4 1.0 0.0-12.0 % Eosinophils (%) (Auto) 0.6 0.0 0.0-7.0 % Basophils (%) (Auto) 0.3 0.0 0.0-2.0 % Neutrophils # (Auto) 11.2 H 11.5 H 1.6-8.6 10 ^3/uL Lymphocytes # (Auto) 1.9 0.6 0.4-5.4 10 ^3/uL Monocytes # (Auto) 0.5 0.1 0-1.3 10 ^3/uL Eosinophils # (Auto) 0.1 0 0-0.8 10 ^3/uL Basophils # (Auto) 0 0 0-0.2 10 ^3/uL Nucleated Red Blood Cells 0.1 0.0 % Sodium Level 138 136-145 mmol/L Potassium Level 4.0 3.5-5.1 mmol/L Chloride Level 107 98-107 mmol/L Carbon Dioxide Level 19 L 20-31 mmol/L Anion Gap 12 5-15 Blood Urea Nitrogen 6 L 9-23 mg/dL Creatinine 0.75 0.550-1.02 mg/dL Glomerular Filtration Rate Calc 109 >90 mL/min BUN/Creatinine Ratio 8.0 L 10.0-20.0 Serum Glucose 126 H 74-106 mg/dL Lactic Acid Level 2.9 *H 3.1 *H 0.4-2.0 mmol/L Calcium Level 10.3 8.7-10.4 mg/dL Magnesium Level 1.8 1.6-2.6 mg/dL Total Bilirubin 0.5 0.2-1.0 mg/dL Aspartate Amino Transferase (AST) 50 H 13-40 U/L Alanine Aminotransferase (ALT) 156 H 7-40 U/L Alkaline Phosphatase 71 46-116 U/L Troponin I High Sensitivity 32 44 *H 67 *H </=34 ng/L Total Protein 8.5 H 5.7-8.2 g/dL Albumin 4.7 3.2-4.8 g/dL Lipase 32 12-53 U/L Beta HCG, Quantitative 48.8 H 35.4 H 1.5-4.2 mIU/mL Prothrombin Time 11.6 9.3-11.8 sec Prothrombin Time INR 1.10 0.9-1.15 Activated Partial Thromboplast Time 23.1 L 24.5-34.5 SEC Test 07/27/24 06:03 Range/Units White Blood Count 10.8 4.4-10.8 10^3/uL Red Blood Count 3.61 L 4.0-5.20 10^6/uL Hemoglobin 10.9 L 12.2-16.2 g/dL Hematocrit 31.5 L 36.0-46.0 % Mean Corpuscular Volume 87.1 80.0-100.0 fL Mean Corpuscular Hemoglobin 30.2 28.0-32.0 pg Mean Corpuscular Hemoglobin Concent 34.7 32.0-36.0 g/dL Red Cell Distribution Width 13.8 11.8-14.3 % Platelet Count 276 140-450 10^3/uL Mean Platelet Volume 8.4 6.9-10.8 fL Neutrophils (%) (Auto) 91.2 H 37.0-80.0 % Lymphocytes (%) (Auto) 7.3 L 10.0-50.0 % Monocytes (%) (Auto) 1.5 0.0-12.0 % Eosinophils (%) (Auto) 0.0 0.0-7.0 % Basophils (%) (Auto) 0.0 0.0-2.0 % Neutrophils # (Auto) 9.9 H 1.6-8.6 10 ^3/uL Lymphocytes # (Auto) 0.8 0.4-5.4 10 ^3/uL Monocytes # (Auto) 0.2 0-1.3 10 ^3/uL Eosinophils # (Auto) 0 0-0.8 10 ^3/uL Basophils # (Auto) 0 0-0.2 10 ^3/uL Nucleated Red Blood Cells 0.0 % Hemoglobin A1c 5.1 <5.7 % A1C Vitamin D 25-Hydroxy 24.9 L 30.0-100 ng/mL Thyroid Stimulating Hormone (TSH) 0.66 0.55-4.78 uIU/mL Assessment and Plan ASSESSMENT AND PLAN Assessment and Plan POD#1 s/p Ex Lap for Ectopic Preg Plan Continue supportive care advance diet/orders CBC in a.m. Pain control My orders: Orders - JORDAN GARAY DO * Soft Sugar Cutter Consultation (07/27/24 15:48) Complete Blood Count (07/28/24 04:00) Plan discussed with: Patient Date of Service: Jul 27, 2024 Billing Provider: JORDAN GARAY DO Common Visit Codes: [id number] INP/OBS CARE(MOD) JORDAN GARAY DO Jul 27, 2024 15:52
[2024-07-28 05:32] VITALS: BP 102/51; PULSE 90; RESP 18; TEMP 98; O2SAT 95
[2024-07-28 06:48] LABS: Basophils # (auto) 0 10 ^3/uL (0-0.2); Basophils % (auto) 0.2 % (0.0-2.0); Eosinophils # (auto) 0 10 ^3/uL (0-0.8); Eosinophils % (auto) 0.5 % (0.0-7.0); Hematocrit 26.4 % (36.0-46.0); Hemoglobin 9.1 g/dL (12.2-16.2); Lymphocytes # (auto) 2.1 10 ^3/uL (0.4-5.4); Lymphocytes % (auto) 28.6 % (10.0-50.0); Mean Corpuscular Hemoglobin 30.5 pg (28.0-32.0); Mean Corpuscular Hgb Conc. 34.5 g/dL (32.0-36.0); Mean Corpuscular Volume 88.6 fL (80.0-100.0); Monocytes # (auto) 0.4 10 ^3/uL (0-1.3); Monocytes % (auto) 5.4 % (0.0-12.0); Neutrophils # (auto) 4.8 10 ^3/uL (1.6-8.6); Neutrophils % (auto) 65.3 % (37.0-80.0); Nucleated Red Blood Cells % 0.1 %; Platelet Count (auto) 207 10^3/uL (140-450); Red Blood Cells 2.98 10^6/uL (4.0-5.20); White Blood Cell 7.3 10^3/uL (4.4-10.8)
[2024-07-28 06:56] LABS: Chloride 106 mmol/L (98-107); Potassium 3.7 mmol/L (3.5-5.1); Sodium 141 mmol/L (136-145)
[2024-07-28 06:57] LABS: Anion Gap 7 (5-15); Carbon Dioxide 28 mmol/L (20-31)
[2024-07-28 06:58] LABS: Calcium 8.9 mg/dL (8.7-10.4)
[2024-07-28 07:02] LABS: BUN/Creatinine Ratio 9.3 (10.0-20.0); Blood Urea Nitrogen 7 mg/dL (9-23); Glucose 105 mg/dL (74-106)
[2024-07-28 08:00] VITALS: BP 124/52; PULSE 76; RESP 16; TEMP 97.7; O2SAT 98
--- NOTE | 2024-07-28 08:23 | DVHPN2 ---
Subjective Progress Notes Subjective POD#2 s/p Ex Lap for Left ectopic (tubal) s/p Left salpingectomy Abdominal pain, elevated troponin No N/V Objective PHYSICAL EXAM Physical Exam: Gen: Alert, NAD Abd: Soft, NT, Non distended, Incision clean/dry / intact Ext Neg Fay sign Vital Signs and I&O Vital Signs Date Time Temp Pulse Resp B/P (MAP) Pulse Ox O2 Delivery O2 Flow Rate FiO2 07/28/24 09:39 100 16 106/72 07/28/24 08:00 97.7 98 97.7 07/27/24 20:00 Room Air* 0 21 Intake and Output 07/28/24 07:00 Intake Total 2820 ml Output Total 500 ml Balance 2320 ml Intake Oral 2060 ml IV Total 760 ml Output Urine Total 500 ml # Voids 2 Lab results Laboratory Tests Test 07/26/24 16:38 07/26/24 17:28 07/26/24 18:42 07/26/24 22:30 Range/Units White Blood Count 13.7 H 12.2 H 4.4-10.8 10^3/uL Red Blood Count 4.88 3.55 L 4.0-5.20 10^6/uL Hemoglobin 14.6 11.9 #L 10.7 L 12.2-16.2 g/dL Hematocrit 43.8 36.1 # 31.9 #L 36.0-46.0 % Mean Corpuscular Volume 89.7 89.7 80.0-100.0 fL Mean Corpuscular Hemoglobin 29.9 30.0 28.0-32.0 pg Mean Corpuscular Hemoglobin Concent 33.4 33.5 32.0-36.0 g/dL Red Cell Distribution Width 13.9 14.0 11.8-14.3 % Platelet Count 358 235 140-450 10^3/uL Mean Platelet Volume 8.5 8.5 6.9-10.8 fL Neutrophils (%) (Auto) 81.9 H 94.2 H 37.0-80.0 % Lymphocytes (%) (Auto) 13.8 4.8 L 10.0-50.0 % Monocytes (%) (Auto) 3.4 1.0 0.0-12.0 % Eosinophils (%) (Auto) 0.6 0.0 0.0-7.0 % Basophils (%) (Auto) 0.3 0.0 0.0-2.0 % Neutrophils # (Auto) 11.2 H 11.5 H 1.6-8.6 10 ^3/uL Lymphocytes # (Auto) 1.9 0.6 0.4-5.4 10 ^3/uL Monocytes # (Auto) 0.5 0.1 0-1.3 10 ^3/uL Eosinophils # (Auto) 0.1 0 0-0.8 10 ^3/uL Basophils # (Auto) 0 0 0-0.2 10 ^3/uL Nucleated Red Blood Cells 0.1 0.0 % Sodium Level 138 136-145 mmol/L Potassium Level 4.0 3.5-5.1 mmol/L Chloride Level 107 98-107 mmol/L Carbon Dioxide Level 19 L 20-31 mmol/L Anion Gap 12 5-15 Blood Urea Nitrogen 6 L 9-23 mg/dL Creatinine 0.75 0.550-1.02 mg/dL Glomerular Filtration Rate Calc 109 >90 mL/min BUN/Creatinine Ratio 8.0 L 10.0-20.0 Serum Glucose 126 H 74-106 mg/dL Lactic Acid Level 2.9 *H 3.1 *H 0.4-2.0 mmol/L Calcium Level 10.3 8.7-10.4 mg/dL Magnesium Level 1.8 1.6-2.6 mg/dL Total Bilirubin 0.5 0.2-1.0 mg/dL Aspartate Amino Transferase (AST) 50 H 13-40 U/L Alanine Aminotransferase (ALT) 156 H 7-40 U/L Alkaline Phosphatase 71 46-116 U/L Troponin I High Sensitivity 32 44 *H 67 *H </=34 ng/L Total Protein 8.5 H 5.7-8.2 g/dL Albumin 4.7 3.2-4.8 g/dL Lipase 32 12-53 U/L Beta HCG, Quantitative 48.8 H 35.4 H 1.5-4.2 mIU/mL Prothrombin Time 11.6 9.3-11.8 sec Prothrombin Time INR 1.10 0.9-1.15 Activated Partial Thromboplast Time 23.1 L 24.5-34.5 SEC Test 07/27/24 06:03 07/28/24 06:22 Range/Units White Blood Count 10.8 7.3 # 4.4-10.8 10^3/uL Red Blood Count 3.61 L 2.98 L 4.0-5.20 10^6/uL Hemoglobin 10.9 L 9.1 #L 12.2-16.2 g/dL Hematocrit 31.5 L 26.4 #L 36.0-46.0 % Mean Corpuscular Volume 87.1 88.6 80.0-100.0 fL Mean Corpuscular Hemoglobin 30.2 30.5 28.0-32.0 pg Mean Corpuscular Hemoglobin Concent 34.7 34.5 32.0-36.0 g/dL Red Cell Distribution Width 13.8 14.0 11.8-14.3 % Platelet Count 276 207 140-450 10^3/uL Mean Platelet Volume 8.4 8.1 6.9-10.8 fL Neutrophils (%) (Auto) 91.2 H 65.3 37.0-80.0 % Lymphocytes (%) (Auto) 7.3 L 28.6 10.0-50.0 % Monocytes (%) (Auto) 1.5 5.4 0.0-12.0 % Eosinophils (%) (Auto) 0.0 0.5 0.0-7.0 % Basophils (%) (Auto) 0.0 0.2 0.0-2.0 % Neutrophils # (Auto) 9.9 H 4.8 1.6-8.6 10 ^3/uL Lymphocytes # (Auto) 0.8 2.1 0.4-5.4 10 ^3/uL Monocytes # (Auto) 0.2 0.4 0-1.3 10 ^3/uL Eosinophils # (Auto) 0 0 0-0.8 10 ^3/uL Basophils # (Auto) 0 0 0-0.2 10 ^3/uL Nucleated Red Blood Cells 0.0 0.1 % Hemoglobin A1c 5.1 <5.7 % A1C Vitamin D 25-Hydroxy 24.9 L 30.0-100 ng/mL Thyroid Stimulating Hormone (TSH) 0.66 0.55-4.78 uIU/mL Sodium Level 141 136-145 mmol/L Potassium Level 3.7 3.5-5.1 mmol/L Chloride Level 106 98-107 mmol/L Carbon Dioxide Level 28 20-31 mmol/L Anion Gap 7 5-15 Blood Urea Nitrogen 7 L 9-23 mg/dL Creatinine 0.75 0.550-1.02 mg/dL Glomerular Filtration Rate Calc 109 >90 mL/min BUN/Creatinine Ratio 9.3 L 10.0-20.0 Serum Glucose 105 74-106 mg/dL Calcium Level 8.9 8.7-10.4 mg/dL Assessment and Plan ASSESSMENT AND PLAN Assessment and Plan POD#2 s/p Ex Lap Left Salpingectomy for ectopic Elevated troponin Acute blood loss anemia Plan: Continue supportive care Advance to regular diet Ambulate Further mgmt per IM team My orders: Orders - JORDAN GARAY DO * Scullion Chief Consultation (07/27/24 15:48) Regular Diet (07/28/24 Breakfast) Plan discussed with: Patient Date of Service: Jul 28, 2024 Billing Provider: JOHNNY LING DO Common Visit Codes: [id number] INP/OBS CARE(MOD) JORDAN GARAY DO Jul 28, 2024 08:23
[2024-07-28] MEDS: ERGOCALCIFEROL 50,000 UNIT(1.25MG) CAP PO SCH (09:58)
[2024-07-28 12:00] VITALS: BP 99/59; PULSE 68; RESP 18; TEMP 98.5; O2SAT 98
--- NOTE | 2024-07-28 13:44 | DVHPNRES ---
Progress Note Date Seen: Jul 28, 2024 Resident Creating Document: MARIA LUISA GONZALEZ RESIDENT Medical Necessity Reason Pt with a Central, PICC or Fol: Yes The following are medically ne: Cantu Catheter Reason for cantu catheter: Jack. Abd Surgery Subjective Review of Systems Patient is a 29-year-old female with past medical history of migraine, gestational hypertension, congenital heart disease now resolved, who came in due to acute intractable abdominal pain. 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 She then called her and mother, she notes she felt too sick to drive and had a brief episode of loss of consciousness from the pain. She was subsequently brought to the hospital. Patient notes that on 06/28/[address] [facility] for abdominal pain and vaginal bleeding that has been ongoing for 1 week where she was told that she is and should go to the hospital. Shortly after, patient went to [facility] ED where a transabdominal ultrasound was conducted and patient was then sent home with antibiotics for UTI along with a diagnosis of threatened miscarriage. A week later on 07/05/2024 patient went to the [facility] again where she was told that her hCG levels were adequately rising and it is not likely threatened miscarriage and was sent home with instructions to follow up with her personal banker. Past surgical history: Denies Home medications: Denies Past Hospitalization: Denies Social & Personal history: Patient lives with her , kids and [id number]. Denies ever using tobacco, alcohol or drugs. Allergies: Denies Patient seen and examined at bedside. Patient is alert and oriented to time, place person and responding to all questions. Patient still has not passed bowel movement however reports passing flatus and urination without any pain or discomfort. Objective vital signs Vital Sign Date Time Temp Pulse Resp B/P (MAP) Pulse Ox O2 Delivery O2 Flow Rate FiO2 07/28/24 12:00 98.5 68 18 99/59 (72) 98 98.5 07/28/24 08:15 Room Air* 0 21 Total Intake and Output 07/27/24 07/27/24 07/28/24 15:00 23:00 07:00 Intake Total 880 ml 1510 ml 430 ml Output Total 500 ml Balance 380 ml 1510 ml 430 ml medications Current Medications Medications Dose Ordered Sig/Christina Route Start Time Stop Time Status Last Admin Dose Admin Ondansetron HCl 4 mg Q4HP PRN IV 07/26/24 20:15 Docusate Sodium 100 mg BIDPRN PRN PO 07/26/24 21:15 Nitroglycerin 0.4 mg Q5MINP PRN SL 07/26/24 21:15 Morphine Sulfate 2 mg Q30M PRN IV 07/26/24 21:15 Lactated Ringer's 1,002 ml @ 80 mls/hr [id number] IV 07/27/24 08:00 07/28/24 09:49 80 MLS/HR Docusate Sodium 100 mg BID PO 07/27/24 10:00 07/28/24 09:47 100 MG Bisacodyl 10 mg Q6HP PRN UT 07/27/24 08:00 Hydromorphone HCl 1 mg Q4HPRN PRN IV 07/27/24 08:00 07/28/24 09:39 1 MG Acetaminophen/ Hydrocodone Bitart 1 tab Q4HP PRN PO 07/27/24 08:00 07/27/24 10:04 1 TAB Cefazolin Sodium 50 ml @ 100 mls/hr Q8HR IV 07/27/24 14:00 07/28/24 05:55 100 MLS/HR Ergocalciferol 50,000 unit Q7D PO 07/28/24 09:30 07/28/24 09:58 50,000 UNIT Examination General Appearance: Cooperative. Well developed. S/p exploratory laparotomy with left salpingectomy Head Exam: Normal inspection Neck Exam: Normal inspection. Non-tender. Normal alignment Pulmonary/Respiratory: Chest non-tender. Clear bilateral breath sounds, no crackles, no wheezing. Cardiovascular/Chest: Regular rate and rhythm. No murmurs. No JVD. Peripheral Pulses: 2+ Radial (R). 2+ Radial (L). 2+ Pedal (R). 2+ Pedal (L) Abdominal Exam: Normal bowel sounds. Soft. normal abdomen, no visible veins, tenderness to palpation. No hepatospenomegaly. No masses Ankle Exam: Negative ankle edema Lower extremities: Negative lower extremity edema Neuro/Mental Status: A&O x4. Coherent. Thoughts/Psych: Normal thought pattern. Appropriate mood and affect. Good judgement and insight Skin Exam: Normal inspection. Normal color. Warm. Dry laboratory and microbiology Laboratory Tests 07/28/24 06:22 Test 07/28/24 06:22 Range/Units Serum Glucose 105 74-106 mg/dL Problem List/Assessment/Plan Problem List/Assessment/Plan Left tubal ruptured ectopic NSTEMI type 2 and lactic acidosis likely due to above S/P exploratory laparotomy with left salpingectomy and evacuation of clots - USG: No intrauterine is noted. Ectopic can not be excluded. Recommend correlation with beta hCG and ultrasound. Complex fluid collection over the right adnexa measuring 7.4 x 6.4 x 7.3 cm with fluid noted within the Morison's pouch. 3.3 x 3.1 x 4.5 cm thick walled hypoechoic structure of the left adnexa, and an ectopic can not be excluded. - IV LR at 80 cc/hour - IV cefazolin Q 8 hours - ibuprofen 400 mg t.i.d. - 500 mg acetaminophen for mild pain, Nelson 10 as needed for moderate pain q.4 hours - advanced to regular diet Slow transit constipation - bisacodyl suppository 10 mg as needed for constipation Mild anemia, likely related to prolonged vaginal bleeding/blood loss - hemoglobin 10.9, MCV 87.1 - we will continue to monitor Transaminitis - AST 50, ALT 156 - we will continue to monitor Vitamin-D deficiency - Repleted DVT prophylaxis: SCD Goals of care: Full code, discussed for >16 minutes on 07/27/24 Plan discussed with patient Plan discussed with Dr. Olvera Plan discussed with: Patient, Other (RN) My Orders My Orders Orders - MARIA LUISA GONZALEZ RESIDENT Procedure Category Date Status Time Incentive Spirometry ORDERS 07/27/24 Transmitted 15:43 Ergocalciferol PHA 07/28/24 In Process (Vitamin D 50,000 09:30 MARIA LUISA GONZALEZ RESIDENT Jul 28, 2024 13:44
[2024-07-28] MEDS: IBUPROFEN 400 MG TAB PO SCH (14:48)
[2024-07-28 16:00] VITALS: BP 102/67; PULSE 88; RESP 12; TEMP 98.1; O2SAT 95
[2024-07-28] MEDS: HYDROmorphone HCL 2 MG/ML VL/or syr IV ONE (16:30)
[2024-07-28 20:00] VITALS: PULSE 95; RESP 19; O2SAT 97
[2024-07-28 21:00] VITALS: BP 120/77; PULSE 95; RESP 19; TEMP 97.8; O2SAT 97
[2024-07-29] VITALS (7 sets, daily range): BP systolic 101–114; BP diastolic 59–68; PULSE 71–89; RESP 14–20; TEMP 97.8–98.3; O2SAT 94–97
[2024-07-29 05:26] LABS: Basophils # (auto) 0 10 ^3/uL (0-0.2); Basophils % (auto) 0.5 % (0.0-2.0); Eosinophils # (auto) 0.2 10 ^3/uL (0-0.8); Eosinophils % (auto) 2.7 % (0.0-7.0); Hematocrit 27.3 % (36.0-46.0); Hemoglobin 9.6 g/dL (12.2-16.2); Lymphocytes # (auto) 2.2 10 ^3/uL (0.4-5.4); Lymphocytes % (auto) 38.9 % (10.0-50.0); Mean Corpuscular Hemoglobin 31.2 pg (28.0-32.0); Mean Corpuscular Hgb Conc. 35.2 g/dL (32.0-36.0); Mean Corpuscular Volume 88.4 fL (80.0-100.0); Monocytes # (auto) 0.4 10 ^3/uL (0-1.3); Monocytes % (auto) 7.3 % (0.0-12.0); Neutrophils # (auto) 2.9 10 ^3/uL (1.6-8.6); Neutrophils % (auto) 50.6 % (37.0-80.0); Nucleated Red Blood Cells % 0.2 %; Platelet Count (auto) 205 10^3/uL (140-450); Red Blood Cells 3.08 10^6/uL (4.0-5.20); Red Cell Distribution Width 13.8 % (11.8-14.3); White Blood Cell 5.7 10^3/uL (4.4-10.8)
[2024-07-29 05:47] LABS: Anion Gap 7 (5-15); Carbon Dioxide 29 mmol/L (20-31); Chloride 106 mmol/L (98-107); Potassium 3.5 mmol/L (3.5-5.1); Sodium 142 mmol/L (136-145)
[2024-07-29 05:48] LABS: Calcium 8.9 mg/dL (8.7-10.4)
[2024-07-29 05:53] LABS: BUN/Creatinine Ratio 12.7 (10.0-20.0); Blood Urea Nitrogen 9 mg/dL (9-23); Glucose 120 mg/dL (74-106)
--- NOTE | 2024-07-29 08:41 | DVHPNRES ---
Progress Note Date Seen: Jul 29, 2024 Resident Creating Document: CHRISTIE BABIN RESIDENT Medical Necessity Reason Pt with a Central, PICC or Fol: Yes The following are medically ne: Cantu Catheter Reason for cantu catheter: Jack. Abd Surgery Subjective Review of Systems Saw the patient at bedside, patient is acute distress, going to bathroom several times. Changes from previous H/P or p: No Changes Review of Systems: HEENT:Normal, CVS:Normal, RESPIRATORY:Abnormal, GI:Abnormal (Lower abdominal pain, discomfort.), :Abnormal (Clots and vaginal bleeding), MSK:Normal, NEURO:Normal Objective vital signs Vital Sign Date Time Temp Pulse Resp B/P (MAP) Pulse Ox O2 Delivery O2 Flow Rate FiO2 07/29/24 08:00 Room Air* 0 21 07/29/24 06:57 98.3 07/29/24 05:00 87 18 101/68 (79) 95 Total Intake and Output 07/28/24 07/28/24 07/29/24 15:00 23:00 07:00 Intake Total 105 ml 1170 ml 1660 ml Balance 105 ml 1170 ml 1660 ml medications Current Medications Medications Dose Ordered Sig/Christina Route Start Time Stop Time Status Last Admin Dose Admin Ondansetron HCl 4 mg Q4HP PRN IV 07/26/24 20:15 Docusate Sodium 100 mg BIDPRN PRN PO 07/26/24 21:15 Nitroglycerin 0.4 mg Q5MINP PRN SL 07/26/24 21:15 Lactated Ringer's 1,002 ml @ 80 mls/hr [id number] IV 07/27/24 08:00 07/29/24 04:16 80 MLS/HR Docusate Sodium 100 mg BID PO 07/27/24 10:00 07/28/24 21:56 100 MG Bisacodyl 10 mg Q6HP PRN NH 07/27/24 08:00 Acetaminophen/ Hydrocodone Bitart 1 tab Q4HP PRN PO 07/27/24 08:00 07/29/24 03:38 1 TAB Cefazolin Sodium 50 ml @ 100 mls/hr Q8HR IV 07/27/24 14:00 07/29/24 06:56 100 MLS/HR Ergocalciferol 50,000 unit Q7D PO 07/28/24 09:30 07/28/24 09:58 50,000 UNIT Ibuprofen 400 mg TID PO 07/28/24 14:00 07/30/24 00:00 07/29/24 06:57 400 MG Acetaminophen 500 mg Q6HP PRN PO 07/28/24 13:45 Examination: GENERAL:Abnormal (In moderate acute distress), HEENT:Normal, NECK:Normal, LUNGS:Normal, CVS:Abnormal (Tachycardic regular,), ABDOMEN:Abnormal (Lower abdomen tender to palpation, non distended, soft, no guarding, no rebound, + bowel sounds.), MSK:Normal, SKIN:Normal, NEURO:Normal laboratory and microbiology Laboratory Tests 07/29/24 04:59 Test 07/29/24 04:59 Range/Units Serum Glucose 120 H 74-106 mg/dL Labs and/or images reviewed: Labs reviewed by me, Image(s) reviewed by me Problem List/Assessment/Plan Problem List/Assessment/Plan Hospital Course: Ms. Renee a 29-year-old female with a history of migraines, gestational hypertension, and resolved congenital heart disease presented with acute, intractable abdominal pain, nausea, vomiting, and cold, clammy skin, leading to a brief loss of consciousness. She was brought to the hospital after being advised of a and potential miscarriage following previous visits for abdominal pain and vaginal bleeding. Despite initial concerns, her hCG levels were rising, reducing the likelihood of a miscarriage. She lives with her , children, and [id number], and denies any use of tobacco, alcohol, or drugs. Currently, she is alert, oriented, and experiencing Recurrent uncontrolled pain with, clots per vagina, urination or passing gas, though she has not had a bowel movement. Soft blood pressure with maintaining a map over 75mmhg. # Left tubal ruptured ectopic , noted in imaging along with elevated beta HCG supportive. # S/P exploratory laparotomy with left salpingectomy and evacuation of clots # post surgical pain management: ibuprofen 400 mg t.i.d, 500 mg acetaminophen for mild pain, Alverda 10 as needed for moderate pain q.4 hours, pain not well tolerated, increase the Alverda 10 to Percocet. # Constipation likely due to post surgical abdomen along with opioid pain medications: Patient feels uncomfortable. Patient on Colace b.i.d. no bowel movement, added lactulose 10 mg b.i.d.. # Per vaginal slow bleeding: Patient has clots, slow but throughout the day bleeding. # Normocytic normochromic anemia: Hemoglobin 10.9>9.6 stable, likely associated to blood loss anemia. Check CBC. # Mild transaminitis: Trend CMP, avoid hepatotoxic drugs, limit acetaminophen 2 g /day # vitamin-D deficiency: continue repletion # DVT prophylaxis: SCDs, movement as tolerated # diet as tolerated Barriers to discharge: No further intervention needed from OBGYN , continues to have vaginal bleed, pain uncontrolled, needs further control possible discharge tomorrow patient is visibly uncomfortable today. Case discussed with Dr. Olvera. Code status: Full code. Complex patient care discussion needed total 37 minutes. At discharge patient will follow F/U with Dr. Cleaning in 1 wk and within 1-2 weeks PCP/ Discharge Clinic follow up. Plan discussed with: Patient, Other CHRISTIE BABIN RESIDENT Jul 29, 2024 08:40
--- NOTE | 2024-07-29 11:23 | DVHPN2 ---
Subjective Progress Notes Subjective s/p ex lap left salpingectomy for ectopic Pain controlled Hemodynamically stable. Tolerating PO well Objective PHYSICAL EXAM Physical Exam: Alert, NAD Abd Soft, NT, Non distended, Incision C/D/I Ext soft Vital Signs and I&O Vital Signs Date Time Temp Pulse Resp B/P (MAP) Pulse Ox O2 Delivery O2 Flow Rate FiO2 07/29/24 09:00 97.8 81 16 113/68 (83) 96 97.8 07/29/24 08:00 Room Air* 0 21 Intake and Output 07/29/24 07:00 Intake Total 2935 ml Balance 2935 ml Intake Oral 2125 ml IV Total 810 ml # Voids 5 Lab results Laboratory Tests Test 07/26/24 16:38 07/26/24 17:28 07/26/24 18:42 07/26/24 22:30 Range/Units White Blood Count 13.7 H 12.2 H 4.4-10.8 10^3/uL Red Blood Count 4.88 3.55 L 4.0-5.20 10^6/uL Hemoglobin 14.6 11.9 #L 10.7 L 12.2-16.2 g/dL Hematocrit 43.8 36.1 # 31.9 #L 36.0-46.0 % Mean Corpuscular Volume 89.7 89.7 80.0-100.0 fL Mean Corpuscular Hemoglobin 29.9 30.0 28.0-32.0 pg Mean Corpuscular Hemoglobin Concent 33.4 33.5 32.0-36.0 g/dL Red Cell Distribution Width 13.9 14.0 11.8-14.3 % Platelet Count 358 235 140-450 10^3/uL Mean Platelet Volume 8.5 8.5 6.9-10.8 fL Neutrophils (%) (Auto) 81.9 H 94.2 H 37.0-80.0 % Lymphocytes (%) (Auto) 13.8 4.8 L 10.0-50.0 % Monocytes (%) (Auto) 3.4 1.0 0.0-12.0 % Eosinophils (%) (Auto) 0.6 0.0 0.0-7.0 % Basophils (%) (Auto) 0.3 0.0 0.0-2.0 % Neutrophils # (Auto) 11.2 H 11.5 H 1.6-8.6 10 ^3/uL Lymphocytes # (Auto) 1.9 0.6 0.4-5.4 10 ^3/uL Monocytes # (Auto) 0.5 0.1 0-1.3 10 ^3/uL Eosinophils # (Auto) 0.1 0 0-0.8 10 ^3/uL Basophils # (Auto) 0 0 0-0.2 10 ^3/uL Nucleated Red Blood Cells 0.1 0.0 % Sodium Level 138 136-145 mmol/L Potassium Level 4.0 3.5-5.1 mmol/L Chloride Level 107 98-107 mmol/L Carbon Dioxide Level 19 L 20-31 mmol/L Anion Gap 12 5-15 Blood Urea Nitrogen 6 L 9-23 mg/dL Creatinine 0.75 0.550-1.02 mg/dL Glomerular Filtration Rate Calc 109 >90 mL/min BUN/Creatinine Ratio 8.0 L 10.0-20.0 Serum Glucose 126 H 74-106 mg/dL Lactic Acid Level 2.9 *H 3.1 *H 0.4-2.0 mmol/L Calcium Level 10.3 8.7-10.4 mg/dL Magnesium Level 1.8 1.6-2.6 mg/dL Total Bilirubin 0.5 0.2-1.0 mg/dL Aspartate Amino Transferase (AST) 50 H 13-40 U/L Alanine Aminotransferase (ALT) 156 H 7-40 U/L Alkaline Phosphatase 71 46-116 U/L Troponin I High Sensitivity 32 44 *H 67 *H </=34 ng/L Total Protein 8.5 H 5.7-8.2 g/dL Albumin 4.7 3.2-4.8 g/dL Lipase 32 12-53 U/L Beta HCG, Quantitative 48.8 H 35.4 H 1.5-4.2 mIU/mL Prothrombin Time 11.6 9.3-11.8 sec Prothrombin Time INR 1.10 0.9-1.15 Activated Partial Thromboplast Time 23.1 L 24.5-34.5 SEC Test 07/27/24 06:03 07/28/24 06:22 07/29/24 04:59 Range/Units White Blood Count 10.8 7.3 # 5.7 4.4-10.8 10^3/uL Red Blood Count 3.61 L 2.98 L 3.08 L 4.0-5.20 10^6/uL Hemoglobin 10.9 L 9.1 #L 9.6 L 12.2-16.2 g/dL Hematocrit 31.5 L 26.4 #L 27.3 L 36.0-46.0 % Mean Corpuscular Volume 87.1 88.6 88.4 80.0-100.0 fL Mean Corpuscular Hemoglobin 30.2 30.5 31.2 28.0-32.0 pg Mean Corpuscular Hemoglobin Concent 34.7 34.5 35.2 32.0-36.0 g/dL Red Cell Distribution Width 13.8 14.0 13.8 11.8-14.3 % Platelet Count 276 207 205 140-450 10^3/uL Mean Platelet Volume 8.4 8.1 8.3 6.9-10.8 fL Neutrophils (%) (Auto) 91.2 H 65.3 50.6 37.0-80.0 % Lymphocytes (%) (Auto) 7.3 L 28.6 38.9 10.0-50.0 % Monocytes (%) (Auto) 1.5 5.4 7.3 0.0-12.0 % Eosinophils (%) (Auto) 0.0 0.5 2.7 0.0-7.0 % Basophils (%) (Auto) 0.0 0.2 0.5 0.0-2.0 % Neutrophils # (Auto) 9.9 H 4.8 2.9 1.6-8.6 10 ^3/uL Lymphocytes # (Auto) 0.8 2.1 2.2 0.4-5.4 10 ^3/uL Monocytes # (Auto) 0.2 0.4 0.4 0-1.3 10 ^3/uL Eosinophils # (Auto) 0 0 0.2 0-0.8 10 ^3/uL Basophils # (Auto) 0 0 0 0-0.2 10 ^3/uL Nucleated Red Blood Cells 0.0 0.1 0.2 % Hemoglobin A1c 5.1 <5.7 % A1C Vitamin D 25-Hydroxy 24.9 L 30.0-100 ng/mL Thyroid Stimulating Hormone (TSH) 0.66 0.55-4.78 uIU/mL Sodium Level 141 142 136-145 mmol/L Potassium Level 3.7 3.5 3.5-5.1 mmol/L Chloride Level 106 106 98-107 mmol/L Carbon Dioxide Level 28 29 20-31 mmol/L Anion Gap 7 7 5-15 Blood Urea Nitrogen 7 L 9 9-23 mg/dL Creatinine 0.75 0.71 0.550-1.02 mg/dL Glomerular Filtration Rate Calc 109 117 >90 mL/min BUN/Creatinine Ratio 9.3 L 12.7 10.0-20.0 Serum Glucose 105 120 H 74-106 mg/dL Calcium Level 8.9 8.9 8.7-10.4 mg/dL Assessment and Plan ASSESSMENT AND PLAN Assessment and Plan s/p Ex Lap, Ectopic preg - stable Plan: Can D/C per [employer] perspective F/U with Dr. Cleaning in 1 wk [employer] will sign off IM to clear for discharge if stable My orders: Orders - JORDAN GARAY DO * [employer] Consultation (07/27/24 15:48) Regular Diet (07/28/24 Breakfast) Plan discussed with: Patient Date of Service: Jul 29, 2024 Billing Provider: JORDAN GARAY DO Common Visit Codes: [id number] INP/OBS CARE(MOD) JORDAN GARAY DO Jul 29, 2024 11:23
--- NOTE | 2024-07-29 13:24 | DVHDSRES ---
Discharge Summary Date of Admission Resident Creating Document: CHRISTIE BABIN RESIDENT Jul 26, 2024 at 21:02 Labs/Diagnostic Data: Laboratory Results Test 07/29/24 04:59 07/27/24 06:03 07/26/24 22:30 07/26/24 18:42 White Blood Count 5.7 10^3/uL (4.4-10.8) Red Blood Count 3.08 10^6/uL (4.0-5.20) Hemoglobin 9.6 g/dL (12.2-16.2) Hematocrit 27.3 % (36.0-46.0) Mean Corpuscular Volume 88.4 fL (80.0-100.0) Mean Corpuscular Hemoglobin 31.2 pg (28.0-32.0) Mean Corpuscular Hemoglobin Concent 35.2 g/dL (32.0-36.0) Red Cell Distribution Width 13.8 % (11.8-14.3) Platelet Count 205 10^3/uL (140-450) Mean Platelet Volume 8.3 fL (6.9-10.8) Neutrophils (%) (Auto) 50.6 % (37.0-80.0) Lymphocytes (%) (Auto) 38.9 % (10.0-50.0) Monocytes (%) (Auto) 7.3 % (0.0-12.0) Eosinophils (%) (Auto) 2.7 % (0.0-7.0) Basophils (%) (Auto) 0.5 % (0.0-2.0) Neutrophils # (Auto) 2.9 10 ^3/uL (1.6-8.6) Lymphocytes # (Auto) 2.2 10 ^3/uL (0.4-5.4) Monocytes # (Auto) 0.4 10 ^3/uL (0-1.3) Eosinophils # (Auto) 0.2 10 ^3/uL (0-0.8) Basophils # (Auto) 0 10 ^3/uL (0-0.2) Nucleated Red Blood Cells 0.2 % Sodium Level 142 mmol/L (136-145) Potassium Level 3.5 mmol/L (3.5-5.1) Chloride Level 106 mmol/L (98-107) Carbon Dioxide Level 29 mmol/L (20-31) Anion Gap 7 (5-15) Blood Urea Nitrogen 9 mg/dL (9-23) Creatinine 0.71 mg/dL (0.550-1.02) Glomerular Filtration Rate Calc 117 mL/min (>90) BUN/Creatinine Ratio 12.7 (10.0-20.0) Serum Glucose 120 mg/dL (74-106) Calcium Level 8.9 mg/dL (8.7-10.4) Hemoglobin A1c 5.1 % A1C (<5.7) Vitamin D 25-Hydroxy 24.9 ng/mL (30.0-100) Thyroid Stimulating Hormone (TSH) 0.66 uIU/mL (0.55-4.78) Beta HCG, Quantitative 35.4 mIU/mL (1.5-4.2) Prothrombin Time 11.6 sec (9.3-11.8) Prothrombin Time INR 1.10 (0.9-1.15) Activated Partial Thromboplast Time 23.1 SEC (24.5-34.5) Lactic Acid Level 3.1 mmol/L (0.4-2.0) Troponin I High Sensitivity 67 ng/L (</=34) Test 07/26/24 16:38 Magnesium Level 1.8 mg/dL (1.6-2.6) Total Bilirubin 0.5 mg/dL (0.2-1.0) Aspartate Amino Transferase (AST) 50 U/L (13-40) Alanine Aminotransferase (ALT) 156 U/L (7-40) Alkaline Phosphatase 71 U/L (46-116) Total Protein 8.5 g/dL (5.7-8.2) Albumin 4.7 g/dL (3.2-4.8) Lipase 32 U/L (12-53) Other Laboratory Tests 07/29/24 04:59 Final Diagnosis/Problems List SAME Discharge Statement: "Patient was advised to return to the ER or call 911 if any headaches, dizziness, shortness of breath, chest pain, abdominal pain, bleeding, fevers, or worsening of medical condition. Patient was counseled about treatment plan, medications, possible side effects, patientverbalized understanding. All questions were answered to the best of my ability. This discharge took greater then 30 minutes in planning, reviewing documentation, counseling the patient, and discussing with other team members." ASSESSMENT ASSESSMENT Assessment SAME CHRISTIE BABIN RESIDENT Jul 29, 2024 13:24
[2024-07-29] MEDS: OXYCODONE W/ ACETAMINOPHEN 5/325MG TABLET PO PRN (14:07)
[2024-07-29] MEDS: ACETAMINOPHEN 500 MG TAB PO PRN (19:07)
[2024-07-29] MEDS: LACTULOSE 20Gm/30ML SOLN PO ONE (21:17)
[2024-07-30 05:00] VITALS: BP 101/75; PULSE 88; RESP 20; TEMP 98.1; O2SAT 96
[2024-07-30 08:00] VITALS: BP 114/80; PULSE 73; RESP 20; TEMP 98; O2SAT 96
[2024-07-30 12:00] VITALS: BP 120/82; PULSE 72; RESP 18; TEMP 98; O2SAT 97
[2024-07-30] MEDS ORDERED: HYDR-4798 PO (14:47)
[2024-07-30 16:00] VITALS: BP 129/92; PULSE 86; RESP 18; TEMP 98.2; O2SAT 98
[2024-07-30 16:18] VITALS: BP 120/82; PULSE 72; RESP 18; TEMP 98; O2SAT 97
[2024-07-30] MEDS ORDERED: CEPH250C PO (16:44)
[2024-07-30] MEDS ORDERED: ERGO1CAP23 PO (16:50)
--- NOTE | 2024-07-30 17:10 | DVHDSRES ---
Discharge Summary Date of Admission Resident Creating Document: MOE LEVY RESIDENT Jul 26, 2024 at 21:02 Date of Discharge: Jul 30, 2024 Admitting Diagnosis Pain Acute appendicitis Polysubstance abuse Labs/Diagnostic Data: Laboratory Results Test 07/29/24 04:59 07/27/24 06:03 07/26/24 22:30 07/26/24 18:42 White Blood Count 5.7 10^3/uL (4.4-10.8) Red Blood Count 3.08 10^6/uL (4.0-5.20) Hemoglobin 9.6 g/dL (12.2-16.2) Hematocrit 27.3 % (36.0-46.0) Mean Corpuscular Volume 88.4 fL (80.0-100.0) Mean Corpuscular Hemoglobin 31.2 pg (28.0-32.0) Mean Corpuscular Hemoglobin Concent 35.2 g/dL (32.0-36.0) Red Cell Distribution Width 13.8 % (11.8-14.3) Platelet Count 205 10^3/uL (140-450) Mean Platelet Volume 8.3 fL (6.9-10.8) Neutrophils (%) (Auto) 50.6 % (37.0-80.0) Lymphocytes (%) (Auto) 38.9 % (10.0-50.0) Monocytes (%) (Auto) 7.3 % (0.0-12.0) Eosinophils (%) (Auto) 2.7 % (0.0-7.0) Basophils (%) (Auto) 0.5 % (0.0-2.0) Neutrophils # (Auto) 2.9 10 ^3/uL (1.6-8.6) Lymphocytes # (Auto) 2.2 10 ^3/uL (0.4-5.4) Monocytes # (Auto) 0.4 10 ^3/uL (0-1.3) Eosinophils # (Auto) 0.2 10 ^3/uL (0-0.8) Basophils # (Auto) 0 10 ^3/uL (0-0.2) Nucleated Red Blood Cells 0.2 % Sodium Level 142 mmol/L (136-145) Potassium Level 3.5 mmol/L (3.5-5.1) Chloride Level 106 mmol/L (98-107) Carbon Dioxide Level 29 mmol/L (20-31) Anion Gap 7 (5-15) Blood Urea Nitrogen 9 mg/dL (9-23) Creatinine 0.71 mg/dL (0.550-1.02) Glomerular Filtration Rate Calc 117 mL/min (>90) BUN/Creatinine Ratio 12.7 (10.0-20.0) Serum Glucose 120 mg/dL (74-106) Calcium Level 8.9 mg/dL (8.7-10.4) Hemoglobin A1c 5.1 % A1C (<5.7) Vitamin D 25-Hydroxy 24.9 ng/mL (30.0-100) Thyroid Stimulating Hormone (TSH) 0.66 uIU/mL (0.55-4.78) Beta HCG, Quantitative 35.4 mIU/mL (1.5-4.2) Prothrombin Time 11.6 sec (9.3-11.8) Prothrombin Time INR 1.10 (0.9-1.15) Activated Partial Thromboplast Time 23.1 SEC (24.5-34.5) Lactic Acid Level 3.1 mmol/L (0.4-2.0) Troponin I High Sensitivity 67 ng/L (</=34) Test 07/26/24 16:38 Magnesium Level 1.8 mg/dL (1.6-2.6) Total Bilirubin 0.5 mg/dL (0.2-1.0) Aspartate Amino Transferase (AST) 50 U/L (13-40) Alanine Aminotransferase (ALT) 156 U/L (7-40) Alkaline Phosphatase 71 U/L (46-116) Total Protein 8.5 g/dL (5.7-8.2) Albumin 4.7 g/dL (3.2-4.8) Lipase 32 U/L (12-53) Other Laboratory Tests 07/29/24 04:59 Brief Hx & Hospital Course: Ms. Lopez a 29-year-old female with a history of migraines, gestational hypertension, and resolved congenital heart disease presented with acute, intractable abdominal pain, nausea, vomiting, and cold, clammy skin, leading to a brief loss of consciousness. She was brought to the hospital after being advised of a and potential miscarriage following previous visits for abdominal pain and vaginal bleeding concerning for miscarriage. She lives with her , children, and [id number], and denies any use of tobacco, alcohol, or drugs. Patient was seen by the OBGYN team had an ultrasound which revealed a large amount of blood products all the way to the liver gutters. Large complex mass consistent with ruptured ectopic . She had left exploratory laparotomy, salpingectomy,evacuation of clots on 07/26/2024. Patient is doing much better and stable stable. Her only complain now is pain. Stable enough to go home and she has been cleared by the OBGYN team. Patient is to follow up with Dr. Cleaning in 1 wk. Will discharge pain home with Lawton and Keflex and vitamin-D. Operations or Procedures Operative Report DATE OF OPERATION: 07/26/24 PREOPERATIVE DIAGNOSES: VAG BLEEDING,SEVERE ABD PAIN SUSPECT Ruptured ectopic POSTOPERATIVE DIAGNOSES: LEFT TUBAL Ruptured ectopic SURGEON: Ivette Cleaning D.O. ANESTHESIOLOGIST: RICHELLE TYPE OF ANESTHESIA : General CONSENT: The patient was informed of the risks and benefits of the procedure. The patient was informed of the risks and benefits of the procedure. These include but are not limited to , complications of anesthesia, postoperative infection, incomplete relief of symptoms, recurrence of symptoms, damage to blood vessels, nerves and tendons, deep venous thrombosis, pulmonary embolism and possible need for repeat surgery in the future. FINDINGS: 1L of hemoperitoneum, LEFT ectopic ampullary leaking , right ovary AND TUBE grossly normal appearing, uterus 8 weeks size, left ovary grossly normal. PROCEDURES: Exploratory laparotomy,LEFT salpingectomy,evacuation of clots. PROCEDURE IN DETAIL: The patient was taken to the operating room placed in supine position. General anesthesia was performed without difficulty. A low Pfannenstiel incision was made with scalpel down to the rectus fascia. The rectus fascia was nicked in the midline and carried laterally. The rectus fascia was dissected superiorly and inferiorly. The rectus muscles were in the midline. Peritoneum was identified and entered with sharp dissection . An O'Jhonny-O'Zeng retractor with moist laps were placed into the abdomen and bowel was packed at this point. At approximately 1000 ml of hemoperitoneum was evacuated. The ectopic was identified and using a MALENA stapler the LEFT tube was excised. Clips were applied to the pedicular site. Copious irrigation was performed all blood clots were removed. The RIGHT tube and ovary were grossly intact. The right ovary was grossly intact appearing. Uterus was 8 weeks in size. Surgicel was applied to to the right tubal site. All laparotomy sponges were removed from the abdomen and pelvis. No bleeding was noted good hemostasis was noted. The O'Jhonny O'Zeng retractor was removed. Fascia was closed using 0 Prolene x2. Skin was closed using staplers. Patient was extubated successfully. She was taken to recovery room in stable condition. Specimen was sent to pathology and it was taken out of the room. ESTIMATED BLOOD LOSS: EBL was 1 L of hemoperitoneum 100 ml intraoperative blood loss. IVETTE CLEANING DO Jul 26, 2024 20:16 DICTATED BY:IVETTE CLEANING DO DICTATED DATE/TIME:07/26/242015 ELECTRONICALLY SIGNED BY:IVETTE CLEANING DO 07/26/242016 ELECTRONICALLY CO-SIGNED BY: Condition at Discharge: Stable Final Diagnosis/Problems List Left tubal ruptured ectopic ; S/P exploratory laparotomy with left salpingectomy and evacuation of clots Constipation likely due to post surgical abdomen along with opioid pain medications Normocytic normochromic anemia Mild transaminitis vitamin-D deficiency Discharge Disposition: Home Discharge Instruct/Medications Diet: Regular Activity: No Restrictions, As Tolerated Follow Up/Referral: 7 days at the discharge Clinic Follow-up with the OBGYN team in a week Medications: Lawton p.r.n. holding after if Tylenol does not work. Discharge Statement: "Patient was advised to return to the ER or call 911 if any headaches, dizziness, shortness of breath, chest pain, abdominal pain, bleeding, fevers, or worsening of medical condition. Patient was counseled about treatment plan, medications, possible side effects, patientverbalized understanding. All questions were answered to the best of my ability. This discharge took greater then 30 minutes in planning, reviewing documentation, counseling the patient, and discussing with other team members." ASSESSMENT ASSESSMENT Assessment Ectopic Pain Date of Service: Jul 30, 2024 Billing Provider: NEISHA ARMANDO MD Common Visit Codes: 88974-WVR/OBS DISCH DAY >30min MOE LEVY Jul 30, 2024 17:10 NEISHA ARMANDO MD Aug 01, 2024 22:57
== END 2024-07-30 17:28 | disposition home or self-care (01) | DRG 547 ==
LOC: EDBD 16:01 → ER 16:01 → OVERFLOW 21:02 → CENTRAL 21:50 → WEST WING 07-27 12:30
PROVIDERS: ADMIT Student in an Organized Health Care Education/Training Program; ATTEND Student in an Organized Health Care Education/Training Program
PROC: 0D9W0ZZ Drainage of Peritoneum, Open Approach (ICD-10-PCS; 2024-07-26)
PROC: 0UB60ZZ Excision of Left Fallopian Tube, Open Approach (ICD-10-PCS; principal; 2024-07-26 19:15)
DX: O00.102 Left tubal pregnancy without intrauterine pregnancy (principal); K66.1 Hemoperitoneum; I21.A1 Myocardial infarction type 2; D62 Acute posthemorrhagic anemia; E87.20 Acidosis, unspecified; K59.00 Constipation, unspecified; E55.9 Vitamin D deficiency, unspecified
CPT/HCPCS: 36415; 76801; 76817; 80048; 80053; 82306; 83036; 83605; 83690; 83735; 84443; 84484; 84702; 85014; 85018; 85025; 85610; 85730; 86850; 86900; 86901; 99291; G0378; J0131; J1100; J1885; J2003; J2405; J2704